=== PATIENT | male | born 1995 | race Caucasian/White ===

== ENCOUNTER 2020-05-07 15:45 | Observation (INO) | payer OTHER, SELFPAY ==
[2020-05-07 15:52] VITALS: BP 146/83; PULSE 85; RESP 16; TEMP 36.5; O2SAT 98; BMI 28.7
--- NOTE | 2020-05-07 17:14 | W.ED.MALEGU ---
HPI - Male Genitourinary General: Chief complaint: Urogenital-Male Stated complaint: STOMACH PAINS Time Seen by Provider: 05/07/20 17:09 History of Present Illness: HPI Narrative: Complain about right lower quadrant pain that started earlier today has not resolved itself does have some pain in his back after pain his abdomen started on the right side. Denies any bowel or bladder problems denies any fever does have some nausea and vomiting MD Complaint: other (Abdominal pain) Onset (ago): hour(s) Duration: constant and progressively worsening Location: abdomen (Right lower quadrant) Radiation: right flank Severity: moderate Severity scale (1-10): 5 Quality: aching Relieving factors: none Exacerbating factors: movement Associated symptoms: Reports nausea and vomiting Review of Systems Const: Denies: fever(s), chills or body aches Eyes: Denies: change in vision or blurry vision ENMT: Denies: throat pain or nasal congestion Card: Denies: chest pain or dyspnea on exertion Resp: Denies: dyspnea, productive cough or non-productive cough GI: Reports: abdominal pain, nausea and vomiting : Reports: flank pain; Denies: difficulty urinating Musc: Denies: extremity pain Skin/Breast: Denies: rash Neuro: Denies: headache(s) Psych: Denies: anxiety or depression Narinder/Lymph: Denies: easy bruising PFSH ED PFSH: Family History Grandfather Diabetes Stroke Father Diabetes Denies family history of Hypertension Social History (Updated 08/02/19 @ 10:58 by Connie Manley LPN) Smoking and tobacco status: never smoked Alcohol intake: never Physical Exam Const: COMMON NORMALS: no acute distress, average body habitus and patient oriented x3 HENMT: COMMON NORMALS: normocephalic HEAD & SCALP: normal to inspection and normocephalic FACE & SINUS: normal facial exam Eye: COMMON NORMALS: conjunctivae normal GENERAL EYE: appearance normal, both eyes and all related structures CONJUNCTIVA: Yes conjunctivae normal Neck/C-Spine: COMMON NORMALS: no JVD Chest: COMMONS NORMALS: normal inspection of the chest Resp: COMMON NORMALS: normal respiratory effort and clear to auscultation bilaterally AUSCULTATION: clear to auscultation bilaterally Cardio: COMMON NORMALS: no JVD, regular rate and regular rhythm RATE: regular rate RHYTHM: regular rhythm GI: COMMON NORMALS: Normal to inspection, nondistended, normoactive bowel sounds present AUSCULTATION: Yes normoactive bowel sounds PALPATION: Yes Tenderness to palpation present (GI) Details: RLQ Extremity: COMMON NORMALS: normal to inspection and full ROM Neuro: COMMON NORMALS: patient oriented x3 Course Vital Signs: Vital signs: Vital Signs Temperature 97.7 F 05/07/20 15:52 Pulse Rate 85 05/07/20 15:52 Respiratory Rate 18 05/07/20 17:34 Blood Pressure 146/83 05/07/20 15:52 Pulse Oximetry 98 05/07/20 15:52 MDM - Male MDM Narrative: Medical decision making narrative: Radiology results sure Dr. Pedrito Ceballos except patient for admission but made aware orders and Lab Data: Labs: Lab Results 05/07/20 05/07/20 Range/Units 17:29 17:29 WBC 12.4 H (4.0-10.0) 10^3/ uL RBC 5.13 (4.1-5.3) 10^6/u L Hgb 15.1 (11.7-16.6) g/dL Hct 44.4 (42.0-52.0) % MCV 86.5 (80-94) fL MCH 29.4 (28.0-34.0) pg MCHC 34.0 (30.0-36.0) g/dL RDW 12.2 (12.1-15.1) % Plt Count 176 (130-400) 10^3/c mm MPV 11.6 H (7.4-10.4) fL Neut % (Auto) 76.6 % Lymph % (Auto) 15.7 % [place] % (Auto) 6.7 % Eos % (Auto) 0.3 % Baso % (Auto) 0.4 % Neut # (Auto) 9.45 H (1.8-7.7) 10^3/u L Lymph # (Auto) 1.9 (0.8-4.8) 10^3/u L [place] # (Auto) 0.8 (0.2-0.9) 10^3/u L Eos # (Auto) 0.0 (0.0-0.8) 10^3/u L Baso # (Auto) 0.1 (0.0-0.1) 10^3/u L Nucleated RBC % (a uto) 0 % Nucleated RBCs # 0.0 /100WBC Sodium Cancelled Potassium Cancelled Chloride Cancelled Carbon Dioxide Cancelled Anion Gap Cancelled BUN Cancelled Creatinine Cancelled GFR Calculation Cancelled Glucose Cancelled Calculated Osmolal ity Cancelled Calcium Cancelled Total Bilirubin Cancelled AST Cancelled ALT Cancelled Alkaline Phosphata se Cancelled Total Protein Cancelled Albumin Cancelled Globulin Cancelled Discharge Plan Discharge Prescriptions: No Action No Known Home Medications RF: 0 Coding Level of Care Code ED Development Technologist for Chg Fwd Exam Comprehensive
[2020-05-07] MEDS: sodium chloride 0.9% 1,000 ML 999 ML IV (17:33)
[2020-05-07 17:34] VITALS: RESP 18
[2020-05-07] MEDS: ondansetron 2 mg/ML SDV 2 mL 4 MG IVP (17:34)
[2020-05-07] MEDS: morphine 4 mg/mL SDV 1 mL IVP ×3 (17:34→23:13)
[2020-05-07 17:38] LABS: Basophils # 0.1 10^3/uL (0.0-0.1); Basophils % 0.4 %; Eosinophils % 0.3 %; Hematocrit 44.4 % (42.0-52.0); Hemoglobin 15.1 g/dL (11.7-16.6); Lymphocytes # 1.9 10^3/uL (0.8-4.8); Lymphocytes % 15.7 %; Mean Corpuscular Hemoglobin 29.4 pg (28.0-34.0); Mean Corpuscular Volume 86.5 fL (80-94); Mean Platelet Volume 11.6 fL (7.4-10.4); Monocytes # 0.8 10^3/uL (0.2-0.9); Monocytes % 6.7 %; Neutrophils # 9.45 10^3/uL (1.8-7.7); Neutrophils % 76.6 %; Nucleated Red Blood Cells % 0 %; Platelet Count 176 10^3/cmm (130-400); Red Blood Count 5.13 10^6/uL (4.1-5.3); Red Cell Distribution Width 12.2 % (12.1-15.1); White Blood Count 12.4 10^3/uL (4.0-10.0)
--- NOTE | 2020-05-07 17:54 | CTR_ITS ---
PROCEDURE INFORMATION: Exam: CT Abdomen And Pelvis With Contrast Exam date and time: 05/07/2020 6:00 PM Age: 24 years old Clinical indication: Nausea and vomiting; Abdominal pain; Localized; Right; Additional info: Rlq pain TECHNIQUE: Imaging protocol: Computed tomography of the abdomen and pelvis with intravenous contrast. Sagittal and coronal reformatted images were created and reviewed. Radiation optimization: All CT scans at this facility use at least one of these dose optimization techniques: automated exposure control; mA and/or kV adjustment per patient size (includes targeted exams where dose is matched to clinical indication); or iterative reconstruction. Contrast material: OMNI 300; Contrast volume: 95 ml; Contrast route: INTRAVENOUS (IV); COMPARISON: No relevant prior studies available. RADIATION DOSE METRICS: Total DLP (mGy-cm): 994.66 FINDINGS: Lungs: Visualized lungs are clear. Pleural space: No pleural effusion. Heart: Visualized portions of the heart are unremarkable. Liver: The visualized liver is unremarkable. Gallbladder and bile ducts: The gallbladder is unremarkable. No biliary ductal dilatation. Pancreas: The pancreas is unremarkable. No pancreatic ductal dilatation. Spleen: The spleen is unremarkable. Adrenal glands: The right and left adrenal glands are unremarkable. Kidneys and ureters: Indeterminate hyperdense focus in the right kidney. Hounsfield units show density greater than expected for simple fluid. This measures 1.0 cm (series 2, image 32). The left kidney is unremarkable. The right and left ureters are unremarkable. Stomach and bowel: No obstruction. No mucosal thickening. Appendix: The appendix is dilated, measuring 1.3 cm in diameter (series 2, image 60). The appendix is fluid-filled. Thickening and enhancement of the wall of the appendix. Mild periappendiceal inflammation. Intraperitoneal space: No free intraperitoneal air. No ascites. No loculated fluid collections to suggest an abscess. Vasculature: No evidence for aortic aneurysm or aortic dissection. Hepatic veins, portal veins, splenic vein, and SMV are patent. Lymph nodes: No lymphadenopathy. Urinary bladder: The bladder is incompletely filled, which can limit evaluation. No focal abnormality in the bladder however. Reproductive: Unremarkable as visualized. Bones/joints: No acute fracture. Soft tissues: The visualized extra-abdominal soft tissues are unremarkable. CT/CT abdomen pelvis w con* [id number] IMPRESSION: 1. Changes consistent with appendicitis. No evidence for appendiceal rupture. 2. Indeterminate hyperdense focus in the right kidney. 3. Incidental/nonacute findings are listed in the report. COMMENTS: 1. THIS REPORT CONTAINS FINDINGS THAT MAY BE CRITICAL TO PATIENT CARE. The findings were verbally communicated via telephone conference with Fortunato Parry at 6:36 PM PILLOWCASE CLEANER on 05/07/2020. The findings were acknowledged and understood. 2. Consistent with the [employer]'s Incidental Findings Committee white paper (J Am Barb Radiol 2018): Any incidental renal lesion less than 1 cm or classified as too small to characterize, or any incidental cystic renal lesion characterized as simple-appearing, is likely benign. No follow-up imaging is recommended for these lesions per consensus recommendations based on imaging criteria. Radiation Dose CTDIVOL = (mGy): DLP = 994.66 (mGy-cm)
[2020-05-07] MEDS: iohexol 350 mg/mL 100 mL Btl IV (18:11)
[2020-05-07 18:32] LABS: Add Urine Microscopic? NO
[2020-05-07 19:04] LABS: Bilirubin Urine 1+ (Negative); Blood Urine Neg (Negative); Glucose Urine UA Norm (Normal); Ketones Urine Negative (Negative); Leukocyte Esterase Urine Negative (Negative); Nitrate Urine Negative (Negative); Protein Urine Neg (Negative); Urine Appearance Clear (CLEAR); Urine Color Yellow (Yellow); Urobilinogen Urine Norm (Negative); pH Urine 6.5 (5-7)
[2020-05-07 19:06] LABS: Alanine Aminotransferase 25 U/L (0-41); Albumin Level 4.1 g/dL (3.5-5.2); Alkaline Phosphatase 62 IU/L (40-130); Anion Gap 11.9 (5-19); Aspartate Amino Transferase 20 U/L (0-40); Blood Urea Nitrogen 10 mg/dL (6-20); Calcium 8.8 mg/dL (8.5-10.5); Carbon Dioxide 27 mmol/L (22-29); Chloride 105 mmol/L (98-107); Globulin 2.2 g/dL (1.3-4.6); Glomerular Filtration Rate 90.3 mL/min (90-130); Glucose 93 mg/dL (65-115); Osmolality Calculated 289 mOsm/kg (285-295); Potassium 3.9 mmol/L (3.5-5.1); Sodium 140 mmol/L (136-145); Total Bilirubin 0.4 mg/dL (0.15-1.2); Total Protein 6.3 g/dL (6.6-8.7)
[2020-05-07 19:08] VITALS: RESP 17
[2020-05-07] MEDS: piperacillin-tazobactam 3.375 GM in sodium chloride 0.9% (plus) 50 ML IV (19:08)
[2020-05-07 20:18] VITALS: BP 132/77; PULSE 64; RESP 18; TEMP 37.3; O2SAT 99
[2020-05-07] MEDS: sodium chloride 0.9% 1,000 ML 100 ML IV (21:03)
[2020-05-07 23:13] VITALS: RESP 18
[2020-05-08] VITALS (15 sets, daily range): BP systolic 100–135; BP diastolic 59–87; PULSE 60–88; RESP 16–20; TEMP 36.1–37; O2SAT 94–98
[2020-05-08] MEDS: piperacillin-tazobactam 3.375 GM in sodium chloride 0.9% (plus) 50 ML IV (02:42)
[2020-05-08] MEDS: morphine 4 mg/mL SDV 1 mL IVP (06:16)
[2020-05-08] MEDS: sodium chloride 0.9% 1,000 ML 100 ML IV (06:16)
--- NOTE | 2020-05-08 06:55 | PM.HP ---
Providers/Chief Complaint Admitting Physician: Clifford Major MD Primary Care Provider: COLIN Tipton Chief Complaint: STOMACH PAINS History of Present Illness Bala Ferreira is a 24 year old male who presented to the ER yesterday evening after he started developing right-sided abdominal pain around 11 AM yesterday morning. Patient states the pain is mainly localized to the right lower quadrant associated with multiple episodes of vomiting as well as nausea. He denies any fevers or chills. No constipation or diarrhea. No similar episodes in the past. Today the pain is in the epigastric as well as right lower quadrant area, does not radiate, worse with movement, no relieving factors. Review of Systems General: Reports: 10 or more systems reviewed and unremarkable except in HPI and below Medications/Allergies Home Medications Medication Instructions Recorded Confirmed Last Taken Type cyanocobalamin (vitamin B-12) 0 mcg IM DIRECTED 05/07/20 05/07/20 04/06/20 08:00 History Allergies Allergy/AdvReac Type Severity Reaction Status Date / Time No Known Allergies Allergy Verified 05/07/20 17:31 PFSH Acute PFSH: Surgical History H/O shoulder surgery Family History Grandfather Diabetes Stroke Father Diabetes Denies family history of Hypertension Social History Smoking and tobacco status: never smoked Alcohol intake: never Vitals/I&O/Wt Last Vital Signs Temp 98.5 F 05/08/20 04:32 Pulse 76 05/08/20 04:32 Resp 18 05/08/20 06:16 BP 107/68 05/08/20 04:32 Pulse Ox 98 05/08/20 04:32 05/07/20 05/07/20 05/08/20 14:59 22:59 06:59 Intake Total 240 / 1161.667 921.667 / 1161.667 Balance 240 / 1161.667 921.667 / 1161.667 Weight last 48 hrs Weight 200 lb Physical Exam Narrative: EXAM NARRATIVE: HEENT: Normocephalic Eye: Sclera /conjunctiva normal Respiratory and chest: Bilateral clear breath sounds on auscultation Cardiovascular: Normal S1 and S2 heart sounds Abdomen: Soft to palpation, tender right lower quadrant Neurological: Oriented to place person and time Skin: Intact, no lesions appreciated on gross exam Data : 05/07/20 17:29 05/07/20 17:55 A&P Assessment and plan (1) Acute appendicitis: 24-year-old gentleman with right lower quadrant pain associated with nausea and vomiting, leukocytosis and CT scan showing acute appendicitis without any evidence of perforation Plan for laparoscopic possible open appendectomy Procedure, risks, benefits and alternatives have been discussed with the patient who wishes to proceed with surgery. Status: Acute Attestations Medical Necessity Statement*: Appendicitis Coding Level of Care Code Acute Ethical Hacker for [facility] Jean-Pierre Diagnoses Acute appendicitis K35.80
[2020-05-08] MEDS: morphine 4 mg/mL SDV 1 mL 2 MG IVP (07:19)
--- NOTE | 2020-05-08 09:07 | ANES.PREANE2 ---
Pre-Anesthetic Assessment Pre-Anesthetic Assessment: Height/Weight: Height 1.78 m Weight 90.718 kg Temp Pulse Resp BP Pulse Ox 98.5 F 88 20 H 125/70 97 05/08/20 07:19 05/08/20 07:19 05/08/20 07:19 05/08/20 07:19 05/08/20 07:19 Preop Diagnosis: acute appendicits Proposed Procedure: Operation Date: 05/08/20 09:15 Proposed Procedures p Laparoscopic Appendectomy - Poss Open(Right) - Clifford Major MD Familial anesthetic complications: None Was Beta Vamsi taken within 24 hours: N/A Last intake: Intake Last Liquid Date 05/07/20 Last Liquid Time 23:59 Last Solid Date 05/07/20 Last Solid Time 21:30 Social: Social History: No alcohol and No tobacco Exam: Pre-Anes Outpt Exam: alert, oriented x 3, clear to auscultation bilaterally and regular rate & rhythm Airway: Cervical ROM: WNL MP: 2 Dentition: Full Anesthetic Plan: ASA status: 1 Anesthesia: General Risk of > 500 ml blood loss (7ml/kg in children): No Meds/Allergies Current Medications: Current Medications Generic Name Dose Route Start Last Admin Trade Name Freq PRN Reason Stop Dose Admin Sodium Chloride 1,000 mls @ 100 m ls/hr 05/07/20 20:03 05/08/20 06:16 Sodium Chloride 0.9% IV 100 mls/hr .Q10H NADJA Administration Piperacillin Sod/T azobactam 50 mls @ 12.5 mls /hr 05/08/20 02:45 05/08/20 02:42 Sod 3.375 gm/ So dium Chloride IV 12.5 mls/hr Q8H NADJA Administration Protocol Morphine Sulfate 4 mg 05/07/20 20:03 05/08/20 06:16 Morphine IVP 4 mg Q4H PRN Administration SEVERE PAIN PFSH Anesthesia PFSH: Surgical History H/O shoulder surgery Family History Grandfather Diabetes Stroke Father Diabetes Denies family history of Hypertension Social History Smoking and tobacco status: never smoked Alcohol intake: never Data Anesthesia CBC & Chem 7: 05/07/20 17:29 05/07/20 17:55 Other Labs: Laboratory Results - last 48 hr 05/07/20 05/07/20 05/07/20 17:29 17:29 17:38 WBC 12.4 H RBC 5.13 Hgb 15.1 Hct 44.4 MCV 86.5 MCH 29.4 MCHC 34.0 RDW 12.2 Plt Count 176 MPV 11.6 H Neut % (Auto) 76.6 Lymph % (Auto) 15.7 [place] % (Auto) 6.7 Eos % (Auto) 0.3 Baso % (Auto) 0.4 Neut # (Auto) 9.45 H Lymph # (Auto) 1.9 [place] # (Auto) 0.8 Eos # (Auto) 0.0 Baso # (Auto) 0.1 Nucleated RBC % (auto) 0 Nucleated RBCs # 0.0 Sodium Cancelled Potassium Cancelled Chloride Cancelled Carbon Dioxide Cancelled Anion Gap Cancelled BUN Cancelled Creatinine Cancelled GFR Calculation Cancelled Glucose Cancelled Calculated Osmolality Cancelled Calcium Cancelled Total Bilirubin Cancelled AST Cancelled ALT Cancelled Alkaline Phosphatase Cancelled Total Protein Cancelled Albumin Cancelled Globulin Cancelled Urine Color Yellow Urine Appearance Clear Urine pH 6.5 Ur Specific [place] 1.020 Urine Protein Neg Urine Glucose (UA) Norm Urine Ketones Negative Urine Blood Neg Urine Nitrate Negative Urine Bilirubin 1+ H Urine Urobilinogen Norm Ur Leukocyte Esterase Negative 05/07/20 17:55 WBC RBC Hgb Hct MCV MCH MCHC RDW Plt Count MPV Neut % (Auto) Lymph % (Auto) [place] % (Auto) Eos % (Auto) Baso % (Auto) Neut # (Auto) Lymph # (Auto) [place] # (Auto) Eos # (Auto) Baso # (Auto) Nucleated RBC % (auto) Nucleated RBCs # Sodium 140 Potassium 3.9 Chloride 105 Carbon Dioxide 27 Anion Gap 11.9 BUN 10 Creatinine 1.0 GFR Calculation 90.3 Glucose 93 Calculated Osmolality 289 Calcium 8.8 Total Bilirubin 0.4 AST 20 ALT 25 Alkaline Phosphatase 62 Total Protein 6.3 L Albumin 4.1 Globulin 2.2 Urine Color Urine Appearance Urine pH Ur Specific [place] Urine Protein Urine Glucose (UA) Urine Ketones Urine Blood Urine Nitrate Urine Bilirubin Urine Urobilinogen Ur Leukocyte Esterase Cardiac Studies: No Data to Display
[2020-05-08] MEDS: sodium chloride 0.9% 1,000 ML 30 ML IV (09:22)
--- NOTE | 2020-05-08 10:49 | PC.CHAP ---
Pastoral Care Encounter/Spiritual Assessment Type of Contact [] Declined yarn spinner visit [] Patient/Family/Request visit [] Outpatient visit [X] Follow-up visit [] Physician referral [] Code/Alert [] Routine visit [] Staff referral [] Actively dying [] Patient sleeping [] Family support [] [] Out of room [] Palliative care [] [] Receiving care in room [] Pre-surgical visit [] Trauma [] Long length of stay [] ICU visit [] Other: Relational/Emotional Strength [] Patient feels connected with others/family/visitors/staff [] Distress [] Loneliness/isolation [] Abandonment Spirituality of Patient [] Person of Mary [] Attends Jew of their Amry [] Believes in Prayer [] Reads Bible or Roman Catholic materials [] There are Spiritual issues to be addressed Patient Service Rep Interventions [] Prayer [] Active listening [] Non-anxious presence [] Spiritual/emotional support [] Crisis/trauma care [] Spiritual counseling [] Bereavement support [] Provided bereavement packet [] Provided Bible/devotional materials [] Provided toy/stuffed animal, coloring book to patient or family member [] Provided Communion [] Anointing/[place] [] Salvation [] Completed spiritual assessment [] Other: Impact on Illness or Injury [] Angry [] Fearful [] Anxious [] Often cries [] Exhaustion [] Unable to work [] Unable to attend faith [] Unable to walk/stand [] Unable to read [] Unable to drive [] Unable to eat/drink [] Unable to sleep [] Unable to be with family [] Patient intubated [] Other: Summary Follow-up visit Time spent with patient 5 mins
[2020-05-08] MEDS: fentaNYL 50 mcg/mL INJ 2mL IVP (11:52)
--- NOTE | 2020-05-08 11:52 | P.OP_ITS ---
Operative Report Date of procedure: May 08, 2020 Pre-op Diagnosis: acute appendicits Post-op diagnosis: same Procedure Done: Laparoscopic appendectomy Specimens removed/disposition: Appendix Surgeon: Clifford Major Anesthesia: General Condition: stable Disposition: PACU Procedure: The patient was taken to the Operating Room and intubated under general anesthesia after antibiotic had been administered. Using a 15 blade, a 1-cm infraumbilical incision was made and using open Dontae technique, the peritoneal cavity was entered. A 12mm port with balloon was placed and 14 mm of pneumoperitoneum was created and 10-mm 30 degree scope was introduced. Two separate 5mm ports were placed in the left and right lower quadrant under direct visualization. The appendix was noted in the right lower quadrant and appeared acutely inflamed.. Using [place] forceps, an opening was made in the mesoappendix near the base of the appendix. An Endo ANJELICA stapler 45mm long 3.5mm blue load was introduced to divide the appendix at it's base. Using electrocaut junior, the mesoappendix including the appendicular artery was divided. There was no bleeding noted and the staple line appeared intact. The right lower quadrant was irrigated with saline and an EndoCatch bag was introduced to remove the appendix. All three ports were removed under direct visualization and there was no bleeding noted on the port sites. 10 0.5% Marcaine was infiltrated at the port sites. The fascia at the umbilical port was closed using figure of eight 0-Vicryl sutures and subcutaneous tissue was approximated using 3-0 Vicryl and skin at all 3 port sites was closed using 4-0 Monocryl and surgical glue.
--- NOTE | 2020-05-08 11:56 | P.DS_ITS ---
Discharge Providers Date of Admission: 05/07/20 18:42 Date of Discharge: May 08, 2020 Attending Provider at Admission: Clifford Major MD Attending Provider at Discharge: Clifford Major MD Primary Care Provider: COLIN Tipton Diagnoses at Discharge Discharge Diagnosis (1) Acute appendicitis: Status: Resolved Reason for Visit Reason for Visit: STOMACH PAINS Hospital Course Discharge Summary: This is a 24-year-old male who presented to the ER yesterday with complaints of right lower quadrant pain, nausea and vomiting and was diagnosed with acute appendicitis. Patient is admitted overnight for IV antibiotics and underwent laparoscopic appendectomy. At time of discharge his vital signs are stable and he is tolerating a liquid diet Discharge Data Data Completed and Pending: Completed Studies During Hospitalization Category Date Time Status CT abdomen pelvis w con* [id number] Urge nt Cat Scan 05/07/20 17:54 Completed Pending at discharge Category Date Time Status Pathology: Surgic al [PTH] Routine Pth 05/08/20 11:27 Ordered Labs from last 24 hours 05/07/20 05/07/20 05/07/20 17:55 17:38 17:29 WBC RBC Hgb Hct MCV MCH MCHC RDW Plt Count MPV Neut % (Auto) Lymph % (Auto) [place] % (Auto) Eos % (Auto) Baso % (Auto) Neut # (Auto) Lymph # (Auto) [place] # (Auto) Eos # (Auto) Baso # (Auto) Nucleated RBC % (a uto) Nucleated RBCs # Sodium 140 Cancelled Potassium 3.9 Cancelled Chloride 105 Cancelled Carbon Dioxide 27 Cancelled Anion Gap 11.9 Cancelled BUN 10 Cancelled Creatinine 1.0 Cancelled GFR Calculation 90.3 Cancelled Glucose 93 Cancelled Calculated Osmolal ity 289 Cancelled Calcium 8.8 Cancelled Total Bilirubin 0.4 Cancelled AST 20 Cancelled ALT 25 Cancelled Alkaline Phosphata se 62 Cancelled Total Protein 6.3 L Cancelled Albumin 4.1 Cancelled Globulin 2.2 Cancelled Urine Color Yellow Urine Appearance Clear Urine pH 6.5 Ur Specific [place] 1.020 Urine Protein Neg Urine Glucose (UA) Norm Urine Ketones Negative Urine Blood Neg Urine Nitrate Negative Urine Bilirubin 1+ H Urine Urobilinogen Norm Ur Leukocyte [place]y ase Negative 05/07/20 17:29 WBC 12.4 H RBC 5.13 Hgb 15.1 Hct 44.4 MCV 86.5 MCH 29.4 MCHC 34.0 RDW 12.2 Plt Count 176 MPV 11.6 H Neut % (Auto) 76.6 Lymph % (Auto) 15.7 [place] % (Auto) 6.7 Eos % (Auto) 0.3 Baso % (Auto) 0.4 Neut # (Auto) 9.45 H Lymph # (Auto) 1.9 [place] # (Auto) 0.8 Eos # (Auto) 0.0 Baso # (Auto) 0.1 Nucleated RBC % (a uto) 0 Nucleated RBCs # 0.0 Sodium Potassium Chloride Carbon Dioxide Anion Gap BUN Creatinine GFR Calculation Glucose Calculated Osmolal ity Calcium Total Bilirubin AST ALT Alkaline Phosphata se Total Protein Albumin Globulin Urine Color Urine Appearance Urine pH Ur Specific [place] y Urine Protein Urine Glucose (UA) Urine Ketones Urine Blood Urine Nitrate Urine Bilirubin Urine Urobilinogen Ur Leukocyte Rossy ase Vitals: Last Vital Signs Temp 97.8 F 05/08/20 09:16 Pulse 72 05/08/20 09:16 Resp 18 05/08/20 09:16 BP 117/61 05/08/20 09:16 Pulse Ox 97 05/08/20 09:16 Discharge Plan Discharge Prescriptions: No Action cyanocobalamin (vitamin B-12) 1,000 mcg/mL Solution 0 mcg IM DIRECTED RF: 0 Discharge Orders: Discharge Order (Routine); Ordered 05/08/20 Ordered By: Clifford Major Referrals: Clifford Major MD [Physician] - 2 weeks Discharge Diet: Advance as tolerated Activity Restrictions/Additional Instructions: 1. Up and walking as tolerated. 2. Ok to shower in 48 hours after surgery. 3. Remove Dermabond dressing in 7-10 days. 4. Do not lift more than 10 pounds. 5. Do not operate heavy machinery or drive while using pain medications. 6. Advised to return to ER or contact my office if there are any signs of infection like, increasing pain, fevers, chills, redness or drainage of pus. 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
--- NOTE | 2020-05-08 12:05 | ANE.PACU2 ---
Inpatient post-anesthesia follow up: Airway intact: Yes Vital signs: Temperature 98.5 F Pulse Rate [Monito r] 85 Pulse Rate 60 Respiratory Rate 18 Blood Pressure [Le ft Arm] 146/83 Blood Pressure 105/65 Pulse Oximetry 97 Oxygen Delivery Me thod Room Air Oxygen Flow Rate Fraction of Inspir ed Oxygen Hydration adequate: Yes Nausea and vomiting: No Pain level: 2 Mental status: Baseline
== END 2020-05-08 15:20 | disposition home or self-care (01) ==
LOC: ER 17:09 → MEDSURG 05-08 04:44
PROVIDERS: Emergency Medicine; Nurse Practitioner Family; Admitting Provider Surgery; PCP Emergency Medicine; Visit Provider Surgery
PROC: 0DTJ4ZZ Resection of Appendix, Percutaneous Endoscopic Approach (ICD-10-PCS; CPT 44970; principal; 2020-05-08 09:15)
DX: K35.80 Unspecified acute appendicitis (principal)
CPT/HCPCS: 44970; 12345; 74177; 80053; 81003; 85025; 88304; 96361; 96365; 96366; 96375; 96376; 99282; 99285; G0378; J1100; J1885; J2270; J2405; J2543; J2704; J2710; J3010; J3490; J7030; Q9967

== ENCOUNTER → 2020-10-29 08:10 | Outpatient (BNVA) | payer OTHER, SELFPAY | PROVIDERS: PCP Emergency Medicine; Referring Provider Dermatology; Visit Provider Podiatrist Foot & Ankle Surgery | DX: M79.673 Pain in unspecified foot (principal) | CPT/HCPCS: 73630 ==